=== PATIENT | male | born 1995 | race African-American/Black ===

== ENCOUNTER 2020-01-09 14:03 | Emergency (ER) | payer SELFPAY ==
[~2020-01-09] VITALS: Ht 175.3 cm; Wt 78.0 kg
[2020-01-09] MEDS ORDERED: NAPROXEN 250MG TABLET PO ONE (17:30)
[2020-01-09 19:04] VITALS: BP 146/89
== END 2020-01-09 19:36 | disposition home or self-care (01) ==
LOC: ER 14:03
DX: R25.2 Cramp and spasm (principal)
CPT/HCPCS: 93970; 99284

== ENCOUNTER 2020-01-16 20:22 | Emergency (ER) | payer SELFPAY ==
[~2020-01-16] VITALS: Ht 182.9 cm; Wt 81.0 kg
[2020-01-16 21:28] LABS: BASOPHILS % 1.4 % (0.0-2.0); EOSINOPHILS % 0.3 % (0.0-5.0); HEMATOCRIT. 45.9 % (42.0-52.0); HEMOGLOBIN. 15.5 g/dL (14.0-18.0); LYMPHOCYTES % 24.8 % (20.0-50.0); MEAN CORPUSCULAR HEMOGLOBIN 28.2 pg (28.0-32.0); MEAN CORPUSCULAR VOLUME 83.2 fL (80.0-94.0); MEAN PLATELET VOLUME 10.1 fl (7.4-10.4); MONOCYTES % 8.3 % (2.0-8.0); NEUTROPHILS % 65.2 % (40.0-76.0); PLATELET 154 x1000/uL (130-400); RED BLOOD CELL COUNT 5.52 mill/uL (4.7-6.1); RED CELL DISTRIBUTION WIDTH 13.1 % (11.6-14.6)
[2020-01-16 21:33] LABS: CHLORIDE 108 mEq/L (98-107)
[2020-01-16 21:37] LABS: ETHANOL BLOOD < 10 mg/dL
[2020-01-16 22:48] LABS: CLARITY URINE CLEAR (CLEAR); COLOR URINE YELLOW (YELLOW); KETONES URINE NEGATIVE (NEGATIVE); LEUKOCYTE ESTERASE URINE NEGATIVE (NEGATIVE); NITRITE URINE NEGATIVE (NEGATIVE); OCCULT BLOOD URINE NEGATIVE (NEGATIVE); PROTEIN URINE NEGATIVE (NEGATIVE); SPECIFIC GRAVITY URINE 1.008 (1.005-1.030); UROBILINOGEN URINE 0.2 E.U./dL (0.2-1.0)
[2020-01-16 23:00] LABS: *BENZODIAZEPINES SCREEN URINE NEGATIVE (NEGATIVE); *COCAINE SCREEN URINE NEGATIVE (NEGATIVE)
[2020-01-16 23:01] LABS: *AMPHETAMINES SCREEN URINE NEGATIVE (NEGATIVE); *BARBITURATES SCREEN URINE NEGATIVE (NEGATIVE); CANNABINOID URINE SCREEN PRESUMTIVE POSITIVE (NEGATIVE); METHADONE URINE SCREEN NEGATIVE (NEGATIVE); OPIATES URINE SCREEN NEGATIVE (NEGATIVE); PHENCYCLIDINE URINE SCREEN NEGATIVE (NEGATIVE)
[2020-01-17 01:06] VITALS: BP 124/70
== END 2020-01-17 01:10 | disposition home or self-care (01) ==
LOC: ER 20:22
DX: F29 Unspecified psychosis not due to a substance or known physiological condition (principal); F12.10 Cannabis abuse, uncomplicated; F20.9 Schizophrenia, unspecified; F90.9 Attention-deficit hyperactivity disorder, unspecified type
CPT/HCPCS: 36415; 80053; 80305; 80320; 81003; 85025; 99283; G0480